=== PATIENT | male | born 1980 | race American Indian/Alaskan Native ===

== ENCOUNTER 2020-01-01 18:45 | Emergency (ER) | payer MEDICAID ==
[2020-01-01 19:10] VITALS: BP 151/90
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
[2020-01-01] MEDS ORDERED: ONDANSETRON 4 MG ODT TAB PO ONE (21:36)
[2020-01-01] MEDS ORDERED: IBUPROFEN 600 MG TAB PO ONE (21:36)
[2020-01-01] MEDS ORDERED: HYDROcodone/ACETAMINOPHEN 7.5-325MG TAB PO ONE (21:36)
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
== END 2020-01-01 23:29 | disposition home or self-care (01) ==
LOC: ED 18:45
DX: S62.015A Nondisplaced fracture of distal pole of navicular [scaphoid] bone of left wrist, initial encounter for closed fracture (principal); T07.XXXA Unspecified multiple injuries, initial encounter; G44.209 Tension-type headache, unspecified, not intractable; M62.838 Other muscle spasm; F17.200 Nicotine dependence, unspecified, uncomplicated; Z79.899 Other long term (current) drug therapy; Z98.890 Other specified postprocedural states; Y04.0XXA Assault by unarmed brawl or fight, initial encounter; Y93.89 Activity, other specified; Y92.89 Other specified places as the place of occurrence of the external cause; Y99.8 Other external cause status
CPT/HCPCS: 70450; 72125; Q0162